=== PATIENT | female | born 1975 | race Caucasian/White ===

== ENCOUNTER → 2016-04-10 | Outpatient (CLI) | payer BC | END | disposition home or self-care (01) | LOC: GMAH 10:20 | PROVIDERS: ATTEND Family Medicine | DX: E53.8 Deficiency of other specified B group vitamins (principal); E55.9 Vitamin D deficiency, unspecified ==

== ENCOUNTER → 2016-06-22 | Outpatient (CLI) | payer BC ==
--- NOTE | 2016-06-22 16:29 | MRI ---
EXAM DESCRIPTION: Cervical Spine CLINICAL HISTORY: 40 years, Female, POSTLAMINECTOMY SYNDROME Neck pain, left shoulder pain, arm weakness COMPARISON: FINDINGS: Sagittal and axial sequences. Patient has had prior anterior fusion C4-5 and C6-7. Hardware from metallic fusion plate at these levels obscures evaluation here. Cord is normal signal characteristics. C2-3 and C3-4 normal limits. C4-5 is not well evaluated due to the magnetic field artifact. C5-6 appears unremarkable. C6-7 is not well seen because of magnetic field artifact. C7-T1 appears unremarkable. IMPRESSION: Postsurgical changes of fusion at C4-5 and C6-7 present. Moderate magnetic field artifact at these levels obscures visualization of the disc spaces. The other visualized cervical disc spaces are within normal limits. Electronically signed by: Joseph Armando MD 06/22/2016 4:28 PM CDT
== END | disposition home or self-care (01) ==
LOC: MRI 08:10
PROVIDERS: ATTEND Anesthesiology Pain Medicine
DX: M96.1 Postlaminectomy syndrome, not elsewhere classified (principal)

== ENCOUNTER 2016-07-18 12:55 | Emergency (ER) | payer BC ==
--- NOTE | 2016-07-18 13:16 | ED.PDOC ---
History of Present Illness - General Chief Complaint: Laceration Stated Complaint: laceration left index finger Time Seen by Provider: 07/18/16 13:15 Source: patient, RN notes reviewed Exam Limitations: no limitations - History of Present Illness Initial Comments: Chelsea Sanchez 40 y/o female stated accidentally cut her left index finger cutting watermelon at home. Timing/Duration: just prior to arrival Severity: moderate Location: hands Improving Factors: nothing Worsening Factors: movement Associated Symptoms: denies symptoms Allergies/Adverse Reactions: Allergies NO KNOWN ALLERGY Allergy (Unverified 04/24/13 12:20) Home Medications: Ambulatory Orders Alprazolam 1 mg PO BID 04/25/13 Buprenorphine [Butrans] 10 mcg TD AMHY 04/25/13 Chlorthalidone 25 mg PO DAILY 04/25/13 Cholecalciferol [Vitamin D] 0 iu PO QD 04/25/13 Diphenhydramine HCl [Benadryl] 25 mg PO PRN 04/25/13 Docusate Sodium [Stool Softener] 100 mg PO PRN 04/25/13 Fish Oil [(None)] 1,200 mg PO DAILY 04/25/13 HYDROcodone 10MG/APAP 325MG [Monarch 10/325] 1 ea PO QID 04/25/13 Ibuprofen 200 mg PO PRN 04/25/13 Levothyroxine Sodium 75 mcg PO DAILY 04/25/13 Lisinopril 5 mg PO DAILY 04/25/13 Simethicone [Gas-X] 80 mg PO PRN 04/25/13 Review of Systems - Review of Systems Constitutional: States: no symptoms reported EENTM: States: no symptoms reported Respiratory: States: no symptoms reported Cardiology: States: no symptoms reported Gastrointestinal/Abdominal: States: no symptoms reported Genitourinary: States: no symptoms reported Musculoskeletal: States: no symptoms reported Skin: States: see HPI Neurological: States: no symptoms reported Endocrine: States: no symptoms reported Past Medical History (General) - Patient Medical History Hx Seizures: No Hx Stroke: No Hx Dementia: No Hx Asthma: No Hx of COPD: No Hx Cardiac Disorders: No Hx Congestive Heart Failure: No Hx Pacemaker: No Hx Hypertension: No Hx Thyroid Disease: No Hx Diabetes: No Hx Gastroesophageal Reflux: No Hx Renal Disease: No Hx Cancer: No Hx of HIV: No Hx Hepatitis C: No Hx MRSA: No Hx Other PMH: Yes - hypothyroidism,fibromyalgia Surgical History: appendectomy, cholecystectomy, other - neck,btl - Vaccination History Hx Tetanus, Diphtheria Vaccination: No - given in er - Social History Hx Tobacco Use: Yes Hx Alcohol Use: No Hx Substance Use: No Hx Substance Use Treatment: No Hx Depression: Yes Feels Threatened In a Relationship: No Hx Physical Abuse: No Hx Emotional Abuse: No - Female History Patient : No Family Medical History - Family History Mother Living Status: Still Living Hx Family Hypertension: Yes - family members Hx Family Diabetes: Yes - family members Hx Family;Other: hypothyroidism Physical Exam - Physical Exam General Appearance: Alert, Comfortable, No apparent distress Eyes, Ears, Nose, Throat Exam: PERRL/EOMI, normal ENT inspection, TMs normal Neck: non-tender, full range of motion, supple Cardiovascular/Chest: normal peripheral pulses, regular rate, rhythm, no murmur Respiratory: chest non-tender, lungs clear, normal breath sounds Gastrointestinal/Abdominal: normal bowel sounds, non tender, soft Back Exam: normal inspection Extremity: normal range of motion, non-tender Neurologic: no motor/sensory deficits - left index finger,rom full, alert, normal mood/affect, oriented x 3 Skin Exam: warm/dry Skin Problem Location: other - laceration 1.5 cms left index finger Skin Character: other - laceration Lymphatic: no adenopathy Procedures - Laceration/Wound Repair Left Finger Wound Length (cm): 1.5 Wound's Depth, Shape: flap Wound Explored: clean Irrigated w/ Saline (cc's): 30 Betadine Prep?: Yes Anesthesia: 1% Lidocaine Wound Repaired With: viviana Number of Sutures: 3 Layer Closure?: No Sterile Dressing Applied?: Yes Departure - Departure Clinical Impression: Laceration of finger Qualifiers: Encounter type: initial encounter Qualified Code(s): S61.219A - Laceration without foreign body of unspecified finger without damage to nail, initial encounter Time of Disposition: 14:01 Disposition: Discharge to Home or Self Care Condition: Good Departure Forms: ED Discharge - Pt. Copy, Patient Portal Self Enrollment Instructions: How to Care for a Laceration After Repair, DI for Laceration Repair, DI for Laceration Repair -- [place] Referrals: Bill Bob MD [Primary Care Provider] - 1-2 Weeks Home Medications: Ambulatory Orders Alprazolam 1 mg PO BID 03/21/14 Buprenorphine [Butrans] 10 mcg TD AMHY 04/25/13 Chlorthalidone 25 mg PO DAILY 04/25/13 Cholecalciferol [Vitamin D] 0 iu PO QD 04/25/13 Diphenhydramine HCl [Benadryl] 25 mg PO PRN 04/25/13 Docusate Sodium [Stool Softener] 100 mg PO PRN 04/25/13 Fish Oil [(None)] 1,200 mg PO DAILY 04/25/13 HYDROcodone 10MG/APAP 325MG [[facility]arch 10/325] 1 ea PO QID 04/25/13 Ibuprofen 200 mg PO PRN 04/25/13 Levothyroxine Sodium 75 mcg PO DAILY 04/25/13 Lisinopril 5 mg PO DAILY 04/25/13 Simethicone [Gas-X] 80 mg PO PRN 04/25/13 Additional Instructions: Removal of viviana 07/28/2016 [facility];Replace wound dressing in one week
[2016-07-18] MEDS ORDERED: TETANUS,DIPHTHERIA,PERTUSSIS 1 EA SYG IM ONE (13:31)
[2016-07-18 13:34] VITALS: TEMP 98.5
[2016-07-18] MEDS ORDERED: LIDOCAINE 1% 10 ML VIAL INJ ONE (13:34)
[2016-07-18] MEDS ORDERED: NEOMYCIN-BACITRACIN-POLYMYXIN 0.9 GM UD TOP ONE (13:41)
[2016-07-18] MEDS ORDERED: HYDROcodone 10MG/APAP 325MG 1 EA TAB PO ONE (14:04)
[2016-07-18 14:39] VITALS: O2SAT 100
[2016-07-18 15:11] VITALS: BP 121/72
== END 2016-07-18 14:20 | disposition home or self-care (01) ==
LOC: ER 12:55
DX: S61.211A Laceration without foreign body of left index finger without damage to nail, initial encounter (principal); E03.9 Hypothyroidism, unspecified; M79.7 Fibromyalgia; Z79.899 Other long term (current) drug therapy; Z23 Encounter for immunization; W26.0XXA Contact with knife, initial encounter; Y93.G1 Activity, food preparation and clean up; Y92.009 Unspecified place in unspecified non-institutional (private) residence as the place of occurrence of the external cause

== ENCOUNTER → 2016-11-20 | Outpatient (CLI) | payer BC | END | disposition home or self-care (01) | LOC: GMAH 10:54 | PROVIDERS: ATTEND Family Medicine | DX: E78.1 Pure hyperglyceridemia (principal) ==